=== PATIENT | female | born 1940 | race Caucasian/White ===

== ENCOUNTER 2016-08-29 12:13 | Day surgery (SDC) | payer MEDICARE, OTHER ==
[2016-08-29] VITALS (10 sets, daily range): BP systolic 124–148; BP diastolic 58–100; PULSE 70–81; TEMP 98
[~2016-08-29] VITALS: Ht 165.2 cm; Wt 113.6 kg
[~2016-08-29 12:13] MED LIST: ACIDOPHILLUS; ACTOS45 MG PO; ALDACTONE 25MG25 MG PO; ALDACTONE25 MG PO; ALLOPURINOL100 MG PO; ALLOPURINOL300 MG PO; AMBIEN 5MG TABLE5 MG PO; AMOXICILLIN 8751 TAB PO; APRESOLINE PO; ASPIRIN E.C. 8181 MG PO; BACTRIM DS 8001 TAB PO; BIAXIN FILMTAB500 MG PO; CARAFATE 1GM1 G PO; CARDIZEM CD 18180 MG PO; CARTIA XT180 MG PO; CATAPRES 0.1MG0.1 MG PO; CATAPRES0.2 MG PO; CIPRO 500MG TA500 MG PO; COLACE 100100 MG/CAP PO; COLCRYS0.6 MG PO; COUMADIN 5MG5 MG/TAB PO; COUMADIN PO; COUMADIN4 MG PO; COUMADIN5 MG PO; COZAAR 25MG25 MG/TAB PO; COZAAR100 MG PO; CRESTOR 10MG10 MG PO; CRESTOR10 MG PO; CYMBALTA 30MG30 MG PO; DIOVAN160 MG PO; DOMPERIDONE; DOXYCYCLINE 10100 MG PO; FISH OIL CONC1000 MG PO; FLAX OIL1000 MG PO; FLAX SEED OIL1000 MG PO; FOLIC ACID 11 MG/TA1 PO; GABAPENTIN600 MG PO; GLUCOTROL XL2.5 MG PO; GUAIFENESIN PO; GUANFACINE1 MG PO; HYDRALAZINE50 MG PO; HYDROCODONE/APAP PO; JANUVIA 100MG100 MG PO; JANUVIA100 MG PO; JANUVIA50 MG PO; LACTULOSE PO; LASIX 40MG TABL40 MG PO; LASIX40 MG PO; LEVAQUIN 5500 MG/TA1 PO; LISINOPRIL10 MG PO; LOPURIN100 MG PO; LORTAB 5/500 501 TAB PO; LORTAB 7.5/5001 TAB PO; LOVAZA1 GM PO; LOVENOX 100100 MG/ML SQ; LOVENOX40 MG/0.4 SC; MACROBID 1100 MG/CAP PO; MIRAPEX 0.125MG PO; MIRAPEX PO; MIRAPEX0.25 MG PO; MONUROL 3 GM3 G/PKT PO; MONUROL3 GM PO; NATURAL TEARS OU; NEPHROCAP PO; NORCO 325 MG-7.1 TAB PO; NORVASC 5MG5 MG/TAB PO; POTASSIUM CH2 MEQ/ML; PRIL40 PO; PRINIVIL10 MG PO; PROTONIX 40MG T40 MG PO; PROTONIX20 MG PO; PROTONIX40 MG PO; QUALAQUIN324 MG PO; QUININE; RIFAMPIN PO; ROZEREM 8MG TABL8 MG PO; TENEX 1MG TA1 MG/TAB PO; TENEX PO; TENEX1 MG PO; TUMS 500500 MG PO; TUMS500 MG PO; VANCOCIN H250 MG/CAP PO; VITAMIN C500 MG PO; WARFARIN PO; WARFARIN SOD5 MG PO; ZOFRAN 4MG T4 MG/TAB PO; ZYLOPRIM 300MG300 MG PO; see list
[2016-08-29] MEDS ORDERED: ZYLOPRIM 100MG100 MG PO (12:52)
[2016-08-29] MEDS ORDERED: CATAPRES 0.1MG0.1 MG PO (12:57)
[2016-08-29] MEDS ORDERED: ZAROXOLYN 2.52.5 MG PO (12:59)
[2016-08-29] MEDS ORDERED: PROZAC40 MG PO (13:00)
[2016-08-29] MEDS ORDERED: XANAX .25M0.25 MG/TA PO (13:00)
[2016-08-29] MEDS ORDERED: PHOS LO PO (13:01)
[2016-08-29 13:31] LABS: MEAN CELL VOLUME 103 fl (80.0-100.0); MEAN CORPUSCULAR HGB CONC 32 g/dl (33.0-37.0); MEAN PLATELET VOLUME 9.9 fl (7.4-10.4); PLATELET COUNT 140 K/mm3 (130-400); RED BLOOD COUNT 2.95 M/mm3 (4.10-5.30); REDCELL DISTRIBUTION WIDTH-CV 12.9 % (11.5-14.5); WHITE BLOOD COUNT 6.8 K/mm3 (4.8-10.8)
[2016-08-29 13:35] LABS: HEMATOCRIT 30.5 % (37.0-47.0); HEMOGLOBIN 9.7 g/dl (12.5-16.0); MEAN CORPUSCULAR HEMOGLOBIN 33 pg (27.0-31.0)
[2016-08-29 13:46] LABS: CALCIUM 9.3 mg/dL (8.4-10.2); CREATININE, serum 3.46 mg/dL (0.52-1.25); POTASSIUM 5.1 mmol/L (3.4-5.0)
[2016-08-29 13:47] LABS: INR 1.2 (0.8-3.0); PROTHROMBIN TIME 13.5 SECONDS (9.7-12.8)
== END 2016-08-29 18:29 | disposition home or self-care (01) ==
LOC: EUO 12:13 → COL.RAD 12:30 → EUO 18:29
PROVIDERS: Internal Medicine Interventional Cardiology
DX: I25.10 Atherosclerotic heart disease of native coronary artery without angina pectoris (principal); R94.39 Abnormal result of other cardiovascular function study; R07.89 Other chest pain; R06.02 Shortness of breath; M79.605 Pain in left leg; M79.604 Pain in right leg; R60.0 Localized edema; R09.89 Other specified symptoms and signs involving the circulatory and respiratory systems; Z79.899 Other long term (current) drug therapy; Z79.82 Long term (current) use of aspirin; Z99.2 Dependence on renal dialysis; Z86.718 Personal history of other venous thrombosis and embolism
CPT/HCPCS: C1760; J2250; J3010; Q9967

== ENCOUNTER → 2016-11-14 | Outpatient (CLI) | payer MEDICARE, OTHER ==
[~2016-11-14] MED LIST changes: +PHOS LO PO; +PROZAC40 MG PO; +XANAX .25M0.25 MG/TA PO; +ZAROXOLYN 2.52.5 MG PO; +ZYLOPRIM 100MG100 MG PO
== END ==
LOC: COL.RAD 10:49
DX: M71.21 Synovial cyst of popliteal space [Baker], right knee (principal)
CPT/HCPCS: J3301

== ENCOUNTER → 2017-02-04 | Outpatient (CLI) | payer MEDICARE, OTHER | LOC: COL.RAD 14:09 | DX: M25.861 Other specified joint disorders, right knee (principal) | CPT/HCPCS: J3301 ==

== ENCOUNTER → 2017-02-06 | Outpatient (CLI) | payer MEDICARE, OTHER | LOC: MC.RAD 01-29 08:40 | DX: Z12.31 Encounter for screening mammogram for malignant neoplasm of breast (principal); R92.0 Mammographic microcalcification found on diagnostic imaging of breast ==

== ENCOUNTER → 2017-02-26 | Outpatient (CLI) | payer MEDICARE, OTHER | LOC: COL.VAS 08:44 | DX: M79.81 Nontraumatic hematoma of soft tissue (principal) ==

== ENCOUNTER 2017-10-18 05:20 | Emergency (ER) | payer MEDICARE, OTHER ==
[~2017-10-18] VITALS: Ht 165.1 cm; Wt 55.0 kg
[~2017-10-18 05:20] MED LIST changes: -GLUCOTROL XL2.5 MG PO; +GLUCOTROL XL5 MG/TAB PO
[2017-10-18 05:27] VITALS: TEMP 100.2
[2017-10-18 05:49] LABS: BASO % 0.2 % (0.0-2.0); EOS # 0.1 (0.0-0.7); EOS % 0.8 % (0-4.0); GRAN # 4.8 (1.4-6.5); GRAN % 76.6 % (42.2-75.2); HEMATOCRIT 31.6 % (37.0-47.0); HEMOGLOBIN 9.4 g/dl (12.5-16.0); LYMPH # 0.8 (1.2-3.4); LYMPH % 12.3 % (20.0-51.0); MEAN CELL VOLUME 104 fl (80.0-100.0); MEAN CORPUSCULAR HEMOGLOBIN 31 pg (27.0-31.0); MEAN CORPUSCULAR HGB CONC 30 g/dl (33.0-37.0); MEAN PLATELET VOLUME 10.3 fl (7.4-10.4); MONO # 0.6 (0.1-0.6); MONO % 9.3 % (1.7-9.3); PLATELET COUNT 151 K/mm3 (130-400); RED BLOOD COUNT 3.05 M/mm3 (4.10-5.30); REDCELL DISTRIBUTION WIDTH-CV 14.7 % (11.5-14.5)
[2017-10-18 05:53] LABS: ARTERIAL BLD GAS O2 SATURATION 93.7 % (92-100); ARTERIAL BLOOD GAS BASE EXCESS -3.7 (-2-2); ARTERIAL BLOOD GAS HCO3 23.4 meq/L (22-26); ARTERIAL BLOOD GAS PCO2 52.3 mmHg (35-45); ARTERIAL BLOOD GAS PO2 75.3 mmHg (80-100); ARTERIAL BLOOD GAS pH 7.27 (7.35-7.45)
[2017-10-18 05:55] LABS: INR 1.2 (0.8-3.0); PROTHROMBIN TIME 14.5 SECONDS (9.7-12.8)
[2017-10-18 05:58] LABS: ALBUMIN 3.9 gm/dL (3.5-5.0); BILIRUBIN,TOTAL 0.4 mg/dL (0.0-1.0); CALCIUM 8.5 mg/dL (8.4-10.2); CREATININE, serum 3.23 mg/dL (0.52-1.25); POTASSIUM 5.1 mmol/L (3.4-5.0); TOTAL PROTEIN 7.7 gm/dL (6.4-8.2)
[2017-10-18 06:12] LABS: TROPONIN-I 0.038 ng/mL (0.000-0.034)
[2017-10-18 07:05] LABS: COLLECTION METHOD CATHETER
[2017-10-18] MEDS ORDERED: PROTONIX 40MG T40 MG PO (07:14)
[2017-10-18 07:15] LABS: MUCOUS Present /lpf; PH 5 (5-8); SQUAMOUS EPITHELIAL 20-50 /hpf; URINE APPEARANCE Cloudy; URINE BACTERIA Many /hpf; URINE BILIRUBIN Negative (NEGATIVE); URINE BLOOD Negative (NEGATIVE); URINE COLOR Yellow; URINE GLUCOSE Negative (NEGATIVE); URINE KETONE Negative (NEGATIVE); URINE LEUKOCYTE ESTERASE 3+ (NEGATIVE); URINE NITRATE Negative (NEGATIVE); URINE PROTEIN(semi-quant) 3+ (NEGATIVE); URINE UROBILINOGEN Negative (NEGATIVE)
[2017-10-18] MEDS ORDERED: ZAROXOLYN 2.52.5 MG PO (07:17)
[2017-10-18] MEDS ORDERED: ZOFRAN 4MG T4 MG/TAB PO (07:18)
[2017-10-18 07:23] VITALS: BP 158/77; PULSE 86
== END 2017-10-18 07:53 | disposition short-term general hospital (02) ==
LOC: COL.ER 05:20
PROVIDERS: Emergency Medicine
DX: I21.4 Non-ST elevation (NSTEMI) myocardial infarction (principal); J81.1 Chronic pulmonary edema; J96.00 Acute respiratory failure, unspecified whether with hypoxia or hypercapnia; E11.22 Type 2 diabetes mellitus with diabetic chronic kidney disease; I13.2 Hypertensive heart and chronic kidney disease with heart failure and with stage 5 chronic kidney disease, or end stage renal disease; I50.9 Heart failure, unspecified; N18.6 End stage renal disease; I25.10 Atherosclerotic heart disease of native coronary artery without angina pectoris; E78.5 Hyperlipidemia, unspecified; K21.9 Gastro-esophageal reflux disease without esophagitis; Z86.718 Personal history of other venous thrombosis and embolism; Z87.19 Personal history of other diseases of the digestive system; Z86.2 Personal history of diseases of the blood and blood-forming organs and certain disorders involving the immune mechanism; Z99.2 Dependence on renal dialysis; Z98.890 Other specified postprocedural states; Z79.4 Long term (current) use of insulin; Z79.82 Long term (current) use of aspirin

== ENCOUNTER → 2018-01-06 | Outpatient (CLI) | payer MEDICARE, OTHER | LOC: COL.RAD 07:13 | DX: N28.1 Cyst of kidney, acquired (principal); N26.1 Atrophy of kidney (terminal); N18.6 End stage renal disease; N39.0 Urinary tract infection, site not specified; Z99.2 Dependence on renal dialysis ==

== ENCOUNTER → 2018-02-25 | Outpatient (CLI) | payer MEDICARE, OTHER ==
[2018-02-25 12:04] LABS: ARTERIAL BLD GAS O2 SATURATION 87.5 % (92-100); ARTERIAL BLD GAS TCO2 CT 25.4; ARTERIAL BLOOD GAS BASE EXCESS -2.4 (-2-2); ARTERIAL BLOOD GAS HCO3 23.9 meq/L (22-26); ARTERIAL BLOOD GAS PCO2 47.8 mmHg (35-45); ARTERIAL BLOOD GAS PO2 57.8 mmHg (80-100); ARTERIAL BLOOD GAS pH 7.32 (7.35-7.45)
== END ==
LOC: COL.PUL 11:10
PROVIDERS: Emergency Medicine
DX: R09.02 Hypoxemia (principal)

== ENCOUNTER 2018-03-14 19:31 | Inpatient (IN) | payer MEDICARE, OTHER ==
[~2018-03-14] VITALS: Ht 160 cm; Wt 128.2 kg
[2018-03-14] MEDS ORDERED: NEURONTIN300 MG/CAP PO (20:39)
[2018-03-14] MEDS ORDERED: TRULICITY1.5 MG/0.5 SQ (20:40)
[2018-03-14 20:46] LABS: BASO % 0.1 % (0.0-2.0); EOS # 0.1 (0.0-0.7); EOS % 1.4 % (0-4.0); GRAN # 6.3 (1.4-6.5); GRAN % 78.8 % (42.2-75.2); HEMATOCRIT 35.2 % (37.0-47.0); LYMPH # 0.7 (1.2-3.4); MEAN CELL VOLUME 104 fl (80.0-100.0); MEAN CORPUSCULAR HEMOGLOBIN 30 pg (27.0-31.0); MEAN CORPUSCULAR HGB CONC 28 g/dl (33.0-37.0); MEAN PLATELET VOLUME 10.6 fl (7.4-10.4); MONO # 0.8 (0.1-0.6); MONO % 9.6 % (1.7-9.3); PLATELET COUNT 124 K/mm3 (130-400); RED BLOOD COUNT 3.38 M/mm3 (4.10-5.30); REDCELL DISTRIBUTION WIDTH-CV 16.7 % (11.5-14.5)
[2018-03-14 20:58] LABS: ALBUMIN 3.7 gm/dL (3.5-5.0); BILIRUBIN,TOTAL 0.5 mg/dL (0.0-1.0); CALCIUM 8.7 mg/dL (8.4-10.2); MAGNESIUM 1.4 mg/dL (1.6-2.3); PHOSPHOROUS 4.8 mg/dL (2.5-4.5); POTASSIUM 4.2 mmol/L (3.4-5.0); TOTAL PROTEIN 6.9 gm/dL (6.4-8.2)
[2018-03-14 21:13] LABS: CREATININE, serum 4.95 mg/dL (0.52-1.25)
[2018-03-14 21:33] LABS: TROPONIN-I 0.017 ng/mL (0.000-0.034)
[2018-03-14] MEDS ORDERED: ZYLOPRIM 100MG100 MG PO (23:17)
[2018-03-14] MEDS ORDERED: NORCO 325 MG-101 TAB PO (23:25)
[2018-03-14 23:56] VITALS: BP 127/59; PULSE 106; TEMP 98.4
[2018-03-15] MEDS ORDERED: ZAROXOLYN 2.52.5 MG PO (00:29)
[2018-03-15] MEDS ORDERED: LASIX 80MG TABL80 MG PO (00:32)
[2018-03-15] MEDS ORDERED: NORCO 325 MG-101 TAB PO (00:33)
[2018-03-15 04:15] VITALS: BP 103/77; PULSE 105; TEMP 98.8
[2018-03-15 06:14] LABS: BASO % 0.3 % (0.0-2.0); EOS # 0.1 (0.0-0.7); EOS % 1.5 % (0-4.0); GRAN # 5.3 (1.4-6.5); GRAN % 72.6 % (42.2-75.2); LYMPH # 0.9 (1.2-3.4); LYMPH % 12.7 % (20.0-51.0); MEAN CELL VOLUME 106 fl (80.0-100.0); MEAN CORPUSCULAR HGB CONC 28 g/dl (33.0-37.0); MEAN PLATELET VOLUME 10.8 fl (7.4-10.4); MONO # 0.9 (0.1-0.6); MONO % 12.2 % (1.7-9.3); PLATELET COUNT 117 K/mm3 (130-400); RED BLOOD COUNT 3.03 M/mm3 (4.10-5.30); REDCELL DISTRIBUTION WIDTH-CV 16.8 % (11.5-14.5)
[2018-03-15 06:31] LABS: HEMATOCRIT 32.1 % (37.0-47.0); HEMOGLOBIN 9.1 g/dl (12.5-16.0); MEAN CORPUSCULAR HEMOGLOBIN 30 pg (27.0-31.0)
[2018-03-15 06:33] LABS: ALBUMIN 3.4 gm/dL (3.5-5.0); CALCIUM 8.5 mg/dL (8.4-10.2); PHOSPHOROUS 5.5 mg/dL (2.5-4.5); POTASSIUM 4.2 mmol/L (3.4-5.0)
[2018-03-15 06:45] LABS: CREATININE, serum 5.44 mg/dL (0.52-1.25)
[2018-03-15 07:28] VITALS: BP 122/64; PULSE 110; TEMP 98.7
[2018-03-15 11:18] VITALS: BP 115/67; PULSE 76; TEMP 98.4
[2018-03-15 15:27] VITALS: BP 141/91; PULSE 99; TEMP 99.4
[2018-03-15 20:20] VITALS: BP 84/35; PULSE 88; TEMP 98.6
[2018-03-15 22:33] VITALS: BP 102/76
[2018-03-16] VITALS (10 sets, daily range): BP systolic 100–146; BP diastolic 45–99; PULSE 67–88; TEMP 97.1–99
[2018-03-16 07:45] LABS: BASO % 0.1 % (0.0-2.0); EOS # 0.1 (0.0-0.7); EOS % 1.3 % (0-4.0); GRAN # 6.5 (1.4-6.5); GRAN % 78.2 % (42.2-75.2); HEMATOCRIT 31.3 % (37.0-47.0); LYMPH # 0.7 (1.2-3.4); LYMPH % 8.8 % (20.0-51.0); MEAN CELL VOLUME 104 fl (80.0-100.0); MEAN CORPUSCULAR HEMOGLOBIN 30 pg (27.0-31.0); MEAN CORPUSCULAR HGB CONC 29 g/dl (33.0-37.0); MEAN PLATELET VOLUME 11.2 fl (7.4-10.4); MONO # 0.9 (0.1-0.6); MONO % 10.6 % (1.7-9.3); PLATELET COUNT 126 K/mm3 (130-400); RED BLOOD COUNT 3.02 M/mm3 (4.10-5.30); REDCELL DISTRIBUTION WIDTH-CV 16.7 % (11.5-14.5)
[2018-03-16 08:03] LABS: ALBUMIN 3.4 gm/dL (3.5-5.0); C-REACTIVE PROTEIN 8.9 mg/dL (0.0-0.9); CALCIUM 8.6 mg/dL (8.4-10.2); PHOSPHOROUS 6.3 mg/dL (2.5-4.5); POTASSIUM 4.3 mmol/L (3.4-5.0)
[2018-03-16 08:08] LABS: CREATININE, serum 6.51 mg/dL (0.52-1.25)
[2018-03-16 08:29] LABS: TSH w REFLEX 0.544 uIU/mL (0.465-4.680)
[2018-03-16 15:37] LABS: FOLATE (FOLIC ACID) 16.5 ng/mL (7.0-31.4)
[2018-03-17 04:17] VITALS: BP 128/50; PULSE 75; TEMP 98.5
[2018-03-17 06:47] LABS: BASO % 0.1 % (0.0-2.0); GRAN # 7.8 (1.4-6.5); GRAN % 87.3 % (42.2-75.2); LYMPH # 0.5 (1.2-3.4); LYMPH % 5.7 % (20.0-51.0); MEAN CELL VOLUME 102 fl (80.0-100.0); MEAN CORPUSCULAR HGB CONC 29 g/dl (33.0-37.0); MEAN PLATELET VOLUME 10.8 fl (7.4-10.4); MONO # 0.5 (0.1-0.6); PLATELET COUNT 127 K/mm3 (130-400); RED BLOOD COUNT 3.11 M/mm3 (4.10-5.30); REDCELL DISTRIBUTION WIDTH-CV 16.8 % (11.5-14.5)
[2018-03-17 06:56] LABS: ALBUMIN 3.6 gm/dL (3.5-5.0); CALCIUM 8.5 mg/dL (8.4-10.2); HEMATOCRIT 31.7 % (37.0-47.0); HEMOGLOBIN 9.3 g/dl (12.5-16.0); MEAN CORPUSCULAR HEMOGLOBIN 30 pg (27.0-31.0)
[2018-03-17 07:14] LABS: CREATININE, serum 5.65 mg/dL (0.52-1.25)
[2018-03-17 07:20] VITALS: BP 96/50; PULSE 77; TEMP 98.2
[2018-03-17 15:55] VITALS: BP 121/48; PULSE 81; TEMP 98.1
[2018-03-17 20:00] VITALS: BP 122/101; PULSE 83; TEMP 98
[2018-03-18 00:50] VITALS: BP 98/75; PULSE 77; TEMP 98.2
[2018-03-18 04:00] VITALS: BP 116/67; PULSE 97; TEMP 98.6
[2018-03-18 07:35] VITALS: BP 104/46; PULSE 76; TEMP 97.5
[2018-03-18 08:04] LABS: EOS % 0.3 % (0-4.0); GRAN # 6.1 (1.4-6.5); GRAN % 81.7 % (42.2-75.2); LYMPH # 0.5 (1.2-3.4); LYMPH % 7.3 % (20.0-51.0); MEAN CELL VOLUME 103 fl (80.0-100.0); MEAN CORPUSCULAR HGB CONC 29 g/dl (33.0-37.0); MEAN PLATELET VOLUME 10.8 fl (7.4-10.4); MONO # 0.7 (0.1-0.6); PLATELET COUNT 172 K/mm3 (130-400); RED BLOOD COUNT 3.14 M/mm3 (4.10-5.30); REDCELL DISTRIBUTION WIDTH-CV 16.7 % (11.5-14.5)
[2018-03-18 08:11] LABS: HEMATOCRIT 32.2 % (37.0-47.0); HEMOGLOBIN 9.3 g/dl (12.5-16.0); MEAN CORPUSCULAR HEMOGLOBIN 30 pg (27.0-31.0)
[2018-03-18 08:15] LABS: ALBUMIN 3.5 gm/dL (3.5-5.0); CALCIUM 8.7 mg/dL (8.4-10.2)
[2018-03-18 08:33] LABS: CREATININE, serum 4.54 mg/dL (0.52-1.25)
[2018-03-18] MEDS ORDERED: ELIQUIS 2.5 PO (11:42)
[2018-03-18] MEDS ORDERED: PACERONE400 MG PO (11:42)
[2018-03-18] MEDS ORDERED: MEDROL 4MG DOSPA4 MG PO (11:46)
[2018-03-18 12:36] VITALS: BP 111/81; PULSE 82; TEMP 97
[2018-03-18 13:37] VITALS: BP_SYST 03; PULSE 249.2
== END 2018-03-18 15:30 | DRG 308 ==
LOC: COL.ER 19:31 → MEDICAL 21:50
PROVIDERS: Emergency Medicine; Internal Medicine Nephrology
PROC: 5A1D70Z Performance of Urinary Filtration, Intermittent, Less than 6 Hours Per Day (ICD-10-PCS; principal; 2018-03-16)
PROC: 5A2204Z Restoration of Cardiac Rhythm, Single (ICD-10-PCS; 2018-03-16)
PROC: 5A1D70Z Performance of Urinary Filtration, Intermittent, Less than 6 Hours Per Day (ICD-10-PCS; 2018-03-17)
DX: I48.91 Unspecified atrial fibrillation (principal); N18.6 End stage renal disease; I12.0 Hypertensive chronic kidney disease with stage 5 chronic kidney disease or end stage renal disease; Z68.43 Body mass index [BMI] 50.0-59.9, adult; Z66 Do not resuscitate; E11.22 Type 2 diabetes mellitus with diabetic chronic kidney disease; K31.84 Gastroparesis; Z99.2 Dependence on renal dialysis; E11.43 Type 2 diabetes mellitus with diabetic autonomic (poly)neuropathy; K11.21 Acute sialoadenitis; Z86.718 Personal history of other venous thrombosis and embolism; E66.01 Morbid (severe) obesity due to excess calories; I27.22 Pulmonary hypertension due to left heart disease; I34.0 Nonrheumatic mitral (valve) insufficiency; K21.9 Gastro-esophageal reflux disease without esophagitis; M26.623 Arthralgia of bilateral temporomandibular joint
CPT/HCPCS: J1815; J2405; J2704; J3010; J7512

== ENCOUNTER → 2018-03-23 | Outpatient (REF) ==
[~2018-03-23] MED LIST changes: +ELIQUIS 2.5 PO; +LASIX 80MG TABL80 MG PO; +MEDROL 4MG DOSPA4 MG PO; +NEURONTIN300 MG/CAP PO; +NORCO 325 MG-101 TAB PO; +PACERONE400 MG PO; +TRULICITY1.5 MG/0.5 SQ
== END ==
LOC: ZLAB.STJ 11:25
DX: N18.4 Chronic kidney disease, stage 4 (severe) (principal)

== ENCOUNTER 2018-04-03 15:55 | Inpatient (IN) | payer MEDICARE, OTHER ==
[~2018-04-03] VITALS: Ht 165.1 cm; Wt 117.0 kg
[2018-04-03] VITALS (158 sets, daily range): BP systolic 83–115; BP diastolic 37–55; PULSE 86–91; TEMP 98.7–98.9; O2SAT 65–100
[2018-04-03 16:46] LABS: BASO % 0.2 % (0.0-2.0); EOS % 0.2 % (0-4.0); GRAN # 10.4 (1.4-6.5); GRAN % 90.2 % (42.2-75.2); HEMATOCRIT 39.3 % (37.0-47.0); HEMOGLOBIN 11.1 g/dl (12.5-16.0); LYMPH # 0.6 (1.2-3.4); LYMPH % 5.4 % (20.0-51.0); MEAN CELL VOLUME 104 fl (80.0-100.0); MEAN CORPUSCULAR HEMOGLOBIN 29 pg (27.0-31.0); MEAN CORPUSCULAR HGB CONC 28 g/dl (33.0-37.0); MEAN PLATELET VOLUME 10.6 fl (7.4-10.4); MONO # 0.4 (0.1-0.6); MONO % 3.5 % (1.7-9.3); PLATELET COUNT 137 K/mm3 (130-400); RED BLOOD COUNT 3.77 M/mm3 (4.10-5.30); REDCELL DISTRIBUTION WIDTH-CV 17.7 % (11.5-14.5)
[2018-04-03 18:12] LABS: ALBUMIN 3.5 gm/dL (3.5-5.0); BILIRUBIN,TOTAL 0.5 mg/dL (0.0-1.0); C-REACTIVE PROTEIN 2.1 mg/dL (0.0-0.9); CALCIUM 8.7 mg/dL (8.4-10.2); CREATININE, serum 3.18 mg/dL (0.52-1.25); POTASSIUM 3.7 mmol/L (3.4-5.0); TOTAL PROTEIN 6.7 gm/dL (6.4-8.2)
[2018-04-03 18:30] LABS: TROPONIN-I 0.056 ng/mL (0.000-0.034)
[2018-04-04] VITALS (491 sets, daily range): BP systolic 50–97; BP diastolic 37–66; PULSE 72–90; TEMP 97.9–100; O2SAT 63–99
[2018-04-04 06:48] LABS: MEAN CORPUSCULAR HGB CONC 27 g/dl (33.0-37.0); PLATELET COUNT 137 K/mm3 (130-400); RED BLOOD COUNT 3.15 M/mm3 (4.10-5.30); REDCELL DISTRIBUTION WIDTH-CV 17.6 % (11.5-14.5)
[2018-04-04 06:51] LABS: HEMATOCRIT 34.3 % (37.0-47.0); HEMOGLOBIN 9.4 g/dl (12.5-16.0); MEAN CELL VOLUME 109 fl (80.0-100.0); MEAN CORPUSCULAR HEMOGLOBIN 30 pg (27.0-31.0)
[2018-04-04 08:06] LABS: BAND 28 % (0-10); LYMPHOCYTE 6 % (20.0-51.0); METAMYELOCYTE 1 % (0-0); NEUTROPHILS 59 % (42.0-75.2); PLATELET ESTIMATE NORMAL (NORMAL)
[2018-04-04 08:07] LABS: ANISOCYTOSIS 1+; STOMATOCYTE 1+
[2018-04-04 10:49] LABS: ARTERIAL BLD GAS O2 SATURATION 93.5 % (92-100); ARTERIAL BLD GAS TCO2 CT 23.4; ARTERIAL BLOOD GAS BASE EXCESS -8.4 (-2-2); ARTERIAL BLOOD GAS HCO3 21.4 meq/L (22-26); ARTERIAL BLOOD GAS PO2 74.5 mmHg (80-100); ARTERIAL BLOOD GAS pH 7.12 (7.35-7.45)
[2018-04-04 10:50] LABS: ARTERIAL BLOOD GAS PCO2 67.2 mmHg (35-45)
[2018-04-04 11:09] LABS: CALCIUM 8.4 mg/dL (8.4-10.2); POTASSIUM 3.6 mmol/L (3.4-5.0)
[2018-04-04 11:11] LABS: CREATININE, serum 4.02 mg/dL (0.52-1.25)
== END 2018-04-04 13:45 | disposition expired | DRG 291 ==
LOC: COL.ER 15:55 → ICU 18:05
PROVIDERS: Emergency Medicine; Internal Medicine
DX: I13.2 Hypertensive heart and chronic kidney disease with heart failure and with stage 5 chronic kidney disease, or end stage renal disease (principal); I50.21 Acute systolic (congestive) heart failure; N18.6 End stage renal disease; J96.01 Acute respiratory failure with hypoxia; I26.99 Other pulmonary embolism without acute cor pulmonale; J96.02 Acute respiratory failure with hypercapnia; L03.116 Cellulitis of left lower limb; I12.0 Hypertensive chronic kidney disease with stage 5 chronic kidney disease or end stage renal disease; I48.2 Chronic atrial fibrillation; Z99.2 Dependence on renal dialysis; Z86.718 Personal history of other venous thrombosis and embolism; Z96.652 Presence of left artificial knee joint; E11.43 Type 2 diabetes mellitus with diabetic autonomic (poly)neuropathy; K31.84 Gastroparesis; Z79.84 Long term (current) use of oral hypoglycemic drugs; Z66 Do not resuscitate; Z51.5 Encounter for palliative care; I27.20 Pulmonary hypertension, unspecified; I34.0 Nonrheumatic mitral (valve) insufficiency; R57.0 Cardiogenic shock; G47.33 Obstructive sleep apnea (adult) (pediatric); E11.22 Type 2 diabetes mellitus with diabetic chronic kidney disease
CPT/HCPCS: 99222; J0282; J2060; J2270; J2704; J7060